=== PATIENT | female | born 1950 | race Two or more races ===

== ENCOUNTER 2022-02-08 12:58 | Emergency (ER) | payer SELFPAY ==
[~2022-02-08] VITALS: Ht 147.3 cm; Wt 50.9 kg
[~2022-02-08 12:58] MED LIST: ALEN5TAB PO; ASPI-611 PF; ATOR20TA PO; CLOP75TA34 PO; DEXT15DR7 OP; DIAZ5TAB4 PO; NORCO10T PO; OMEG1CAP54 PO
[2022-02-08 13:33] LABS: BASOPHILS # (AUTO) 0.1 X10'3 (0-0.2); BASOPHILS % (AUTO) 1.1 % (0-1); EOSINOPHILS % (AUTO) 0.2 % (0-6); HEMATOCRIT 26.1 % (35.0-45.0); LYMPHOCYTES # (AUTO) 1.4 X10'3 (1.1-4.8); MEAN CORPUSCULAR HEMOGLOBIN 19.4 PG (27.0-31.0); MEAN CORPUSCULAR HGB CONC 30.5 g/dL (33.0-36.5); MEAN CORPUSCULAR VOLUME 63.5 FL (78-98); MEAN PLATELET VOLUME 7.8 FL (7.4-10.4); MONOCYTES # (AUTO) 0.6 X10'3 (0-0.9); MONOCYTES % (AUTO) 7.4 % (2-12); NEUTROPHILS # (AUTO) 6.4 X10'3 (1.8-7.7); NEUTROPHILS % (AUTO) 75.3 % (42-75); PLATELET COUNT 485 X10'3 (140-440); RED BLOOD COUNT 4.11 X10'6 (4.20-5.60); RED CELL DISTRIBUTION WIDTH 19.8 % (11.5-14.5); WHITE BLOOD COUNT 8.5 X10'3 (4.5-11.0)
[2022-02-08 13:46] LABS: ALANINE AMINOTRANSFERASE 25 U/L (12-78); ALBUMIN 3.5 G/DL (3.4-5.0); ALBUMIN/GLOBULIN RATIO 0.5 (1.1-1.5); ALKALINE PHOSPHATASE 82 IU/L (46-116); ANION GAP 16 (8-16); ASPARTATE AMINO TRANSFERASE 16 U/L (10-37); BILIRUBIN,TOTAL 0.4 MG/DL (0.1-1.0); BLOOD UREA NITROGEN 26 MG/DL (7-18); BUN/CREATININE RATIO 22.6 (6.6-38.0); CALCIUM 9.1 MG/DL (8.5-10.1); CHLORIDE 100 MMOL/L (99-107); CREATININE 1.15 MG/DL (0.40-0.90); GLUCOSE 110 MG/DL (70-104); POTASSIUM 3.9 MMOL/L (3.5-5.1); SODIUM 134 MMOL/L (135-145); TOTAL CARBON DIOXIDE 17.9 MMOL/L (24-32); eGFR 46 ML/MIN
[2022-02-08 13:52] LABS: PLATELET ESTIMATE INCREASED
[2022-02-08 13:53] LABS: ELLIPTOCYTES 1+; HYPOCHROMASIA 1+
[2022-02-08 13:54] LABS: POLYCHROMASIA 1+; SCHISTOCYTES FEW
[2022-02-08 13:55] LABS: TEAR DROP CELLS FEW
[2022-02-08 17:58] LABS: HEMATOCRIT 24.1 % (35.0-45.0); HEMOGLOBIN 7.6 g/dl (12.0-16.0); MEAN CORPUSCULAR HEMOGLOBIN 20.2 PG (27.0-31.0); MEAN CORPUSCULAR HGB CONC 31.4 g/dL (33.0-36.5); MEAN CORPUSCULAR VOLUME 64.4 FL (78-98); MEAN PLATELET VOLUME 7.7 FL (7.4-10.4); PLATELET COUNT 430 X10'3 (140-440); RED BLOOD COUNT 3.74 X10'6 (4.20-5.60); RED CELL DISTRIBUTION WIDTH 19.5 % (11.5-14.5); WHITE BLOOD COUNT 7.5 X10'3 (4.5-11.0)
[2022-02-08 19:03] VITALS: BP 166/89
== END 2022-02-08 19:09 | disposition home or self-care (01) ==
LOC: ER 12:59
DX: D50.0 Iron deficiency anemia secondary to blood loss (chronic) (principal); D68.59 Other primary thrombophilia; R42 Dizziness and giddiness; I25.10 Atherosclerotic heart disease of native coronary artery without angina pectoris; I10 Essential (primary) hypertension; Z98.890 Other specified postprocedural states; Z60.2 Problems related to living alone; Z88.6 Allergy status to analgesic agent; Z88.8 Allergy status to other drugs, medicaments and biological substances; Z88.2 Allergy status to sulfonamides; Z79.82 Long term (current) use of aspirin; Z79.899 Other long term (current) drug therapy
CPT/HCPCS: 36415; 80053; 83880; 85008; 85025; 85027; 99283

== ENCOUNTER 2022-08-15 14:09 | Inpatient (IN) | payer OTHER ==
[2022-08-15] VITALS (27 sets, daily range): BP systolic 70–190; BP diastolic 24–99
[~2022-08-15] VITALS: Ht 147.3 cm; Wt 49.8 kg
[2022-08-15] MEDS ORDERED: LORazepam 0.5 MG tablet PO PRN (15:10)
[2022-08-15] MEDS ORDERED: diphenhydrAMINE 25mg capsule PO PRN (15:10)
[2022-08-15] MEDS: normal saline 1,000 ML IV SCH ×2 (15:48→20:15)
[2022-08-15] MEDS ORDERED: phenylephrine 10mg/ml inj. ONE (16:09)
[2022-08-15] MEDS ORDERED: DOPamine 400mg/D5W 250ml 0 ML IV ONE (16:09)
[2022-08-15] MEDS ORDERED: LIDOcaine 1% 30ml preserv. free vial ONE (16:09)
[2022-08-15] MEDS ORDERED: atropine 0.1mg/ml 10ml syringe ONE (16:09)
[2022-08-15] MEDS ORDERED: heparin 1,000unit/ml 10ml vial 10 ML ONE (16:09)
[2022-08-15] MEDS ORDERED: iohexol 350MG/ML 100ml bottle IV ONE (16:09)
[2022-08-15] MEDS ORDERED: CALC200T42 PO (16:10)
[2022-08-15] MEDS ORDERED: ATOR-2 PO (16:10)
[2022-08-15] MEDS ORDERED: BISO10TA16 PO (16:10)
[2022-08-15] MEDS ORDERED: SACU1TAB7 PO (16:10)
[2022-08-15] MEDS ORDERED: CHOL20002 PO (16:10)
[2022-08-15] MEDS ORDERED: clopidogrel 300mg tablet ONE (17:49)
[2022-08-15] MEDS ORDERED: DOBUTamine-DoBUTrex 500mg/D5W 250 ML IV SCH (19:05)
[2022-08-15] MEDS ORDERED: pseudoephedrine 30mg tablet PO PRN ×2 (19:15→21:55)
[2022-08-15] MEDS ORDERED: DOPamine 400mg/D5W 250ml 250 ML IV SCH ×3 (19:15→21:05)
[2022-08-15] MEDS ORDERED: ondansetron/PF 4mg/2ml inj ONE (20:17)
--- NOTE | 2022-08-15 21:49 | NUR ---
Patient in at 2125. Placed on tele monitor. resting comfortably. Vitals stable.Femo stop in place at Left groin 41/mm/Hg
[2022-08-15] MEDS ORDERED: HYDROcodone/acetaminophen 10/325mg tab PO PRN (21:55)
[2022-08-15] MEDS ORDERED: hydrALAZINE 20mg/ml inj. IV PRN (21:55)
[2022-08-15] MEDS ORDERED: HYDROcodone/acetaminophen 5mg/325mg tablet PO PRN (21:55)
[2022-08-16] VITALS (7 sets, daily range): BP systolic 110–151; BP diastolic 47–99
[2022-08-16] MEDS: normal saline 1,000 ML IV SCH (00:42)
[2022-08-16] MEDS ORDERED: atenolol 50mg tablet PO SCH (08:00)
[2022-08-16] MEDS ORDERED: ALENDRONATE SODIUM 5 MG PO SCH (08:00)
[2022-08-16] MEDS ORDERED: calcium carbonate 500mg tablet PO SCH (08:00)
[2022-08-16] MEDS ORDERED: DEXTRAN OP SCH (08:00)
[2022-08-16] MEDS ORDERED: OMEGA-3/DHA/EPA/FISH OIL 1 EACH CAPSULE.DR PO SCH ×2 (08:00→09:30)
[2022-08-16] MEDS ORDERED: cholecalciferol (vitamin D3) 1,000 unit (25mcg) tablet PO SCH (08:00)
[2022-08-16] MEDS ORDERED: sacubitril/valsartan 49mg-51mg tablet PO SCH (08:00)
[2022-08-16] MEDS ORDERED: aspirin 81mg, enteric-coated 1 TAB TABLET.DR PO SCH (08:00)
[2022-08-16] MEDS ORDERED: atorvastatin 20mg tablet PO SCH (08:00)
[2022-08-16] MEDS ORDERED: clopidogrel 75mg tablet PO SCH (08:00)
[2022-08-16] MEDS ORDERED: HYPROMELLOSE OP SCH (08:00)
[2022-08-16] MEDS ORDERED: ondansetron/PF 4mg/2ml inj IV PRN (12:00)
--- NOTE | 2022-08-16 15:37 | NUR ---
Patient stable for discharge per Dr. Hyatt. All discharge instructions reviewed with patient and all questions answered. Patient verbalized understanding. No new medications ordered. PIV discontinued, cannula intact. All belongings collected and sent with patient. Picked up by transportations service.
== END 2022-08-16 14:15 | disposition home or self-care (01) | DRG 36 ==
LOC: SSTAY O 14:09 → PCU 3S 18:00
PROVIDERS: ADMIT Student in an Organized Health Care Education/Training Program; ATTEND Student in an Organized Health Care Education/Training Program
PROC: B3141ZZ Fluoroscopy of Left Common Carotid Artery using Low Osmolar Contrast (ICD-10-PCS; principal; 2022-08-15)
PROC: 037K34Z Dilation of Right Internal Carotid Artery with Drug-eluting Intraluminal Device, Percutaneous Approach (ICD-10-PCS; 2022-08-15)
PROC: B3161ZZ Fluoroscopy of Right Internal Carotid Artery using Low Osmolar Contrast (ICD-10-PCS; 2022-08-15)
PROC: B3191ZZ Fluoroscopy of Right External Carotid Artery using Low Osmolar Contrast (ICD-10-PCS; 2022-08-15)
PROC: B41G1ZZ Fluoroscopy of Left Lower Extremity Arteries using Low Osmolar Contrast (ICD-10-PCS; 2022-08-15)
PROC: B3101ZZ Fluoroscopy of Thoracic Aorta using Low Osmolar Contrast (ICD-10-PCS; 2022-08-15)
DX: I65.21 Occlusion and stenosis of right carotid artery (principal); E78.5 Hyperlipidemia, unspecified; I12.9 Hypertensive chronic kidney disease with stage 1 through stage 4 chronic kidney disease, or unspecified chronic kidney disease; I25.10 Atherosclerotic heart disease of native coronary artery without angina pectoris; I95.9 Hypotension, unspecified; I73.9 Peripheral vascular disease, unspecified; N18.9 Chronic kidney disease, unspecified; Z79.899 Other long term (current) drug therapy; Z79.82 Long term (current) use of aspirin; Z68.22 Body mass index [BMI] 22.0-22.9, adult
CPT/HCPCS: 37215; 93005; A4620; A6258; C1725; C1769; C1876; C1884; C1887; C1894; G0378; J0461; J1265; J1644; J2370; J2405; J3490; J7030; J7040; Q0163; Q9967

== ENCOUNTER 2023-10-23 14:52 | Day surgery (SDC) | payer MEDICARE, MEDICAID ==
[~2023-10-23] VITALS: Ht 149.9 cm; Wt 54.5 kg
[2023-10-23] VITALS (12 sets, daily range): BP systolic 128–170; BP diastolic 34–58; PULSE 58–73; RESP 9–16; TEMP 98.3–99.1; O2SAT 95–100
[~2023-10-23 14:52] MED LIST changes: +ATOR-2 PO; -ATOR20TA PO; +BISO10TA16 PO; +CALC200T16 PO; +CHOL20002 PO; -DIAZ5TAB4 PO; -NORCO10T PO; +SACU1TAB7 PO
[2023-10-23] MEDS: normal saline 1,000 ML IV SCH (15:10)
[2023-10-23] MEDS ORDERED: LORazepam 0.5 MG tablet PO PRN (15:10)
[2023-10-23] MEDS ORDERED: diphenhydrAMINE 25mg capsule PO PRN (15:10)
[2023-10-23] MEDS ORDERED: FURO20TA4 PO (15:45)
[2023-10-23] MEDS ORDERED: APIX5TAB3 PO (15:45)
[2023-10-23] MEDS ORDERED: DOPamine 400mg/D5W 250ml 0 ML IV ONE (16:08)
[2023-10-23] MEDS ORDERED: iohexol 350MG/ML 100ml bottle IV ONE (16:09)
[2023-10-23] MEDS ORDERED: heparin 1,000unit/ml 10ml vial 10 ML ONE (16:09)
[2023-10-23] MEDS ORDERED: atropine 0.1mg/ml 10ml syringe ONE (16:09)
[2023-10-23] MEDS ORDERED: phenylephrine 10mg/ml inj. -priapism dosing ONE (16:09)
[2023-10-23] MEDS ORDERED: LIDOcaine 1% (10mg/ml)w/preservative inj. 20ml MDV ONE (16:09)
[2023-10-23] MEDS ORDERED: clopidogrel 300mg tablet ONE (18:35)
[2023-10-23] MEDS ORDERED: hydrALAZINE 20mg/ml inj. IV PRN (20:30)
[2023-10-23] MEDS ORDERED: pseudoephedrine 30mg tablet PO PRN (20:30)
[2023-10-23] MEDS ORDERED: HYDROcodone/acetaminophen 10/325mg tab PO PRN (20:30)
[2023-10-23] MEDS ORDERED: HYDROcodone/acetaminophen 5mg/325mg tablet PO PRN (20:30)
[2023-10-23] MEDS ORDERED: DOPamine 400mg/D5W 250ml 250 ML IV SCH (20:30)
[2023-10-23] MEDS ORDERED: atorvastatin 20mg tablet PO SCH (21:00)
[2023-10-24] MEDS: normal saline 1,000 ML IV SCH ×2 (01:29→11:10)
[2023-10-24 02:00] VITALS: BP 130/36; PULSE 83; RESP 15; TEMP 98; O2SAT 100
[2023-10-24 06:00] VITALS: BP 114/73; PULSE 69; RESP 24; TEMP 97.1; O2SAT 100
[2023-10-24 06:42] LABS: CHOL/HDL RATIO 2.4 (0.00-4.99); CHOLESTEROL 73 MG/DL (0-200); HDL CHOLESTEROL 30 MG/DL (35-60); LDL CHOLESTEROL 30 MG/DL (50-100); TRIGLYCERIDES 93 MG/DL (20-135)
[2023-10-24] MEDS ORDERED: calcium carbonate 500mg tablet PO SCH (07:30)
[2023-10-24] MEDS ORDERED: furosemide 20MG tablet PO SCH (08:00)
[2023-10-24] MEDS ORDERED: cholecalciferol (vitamin D3) 1,000 unit (25mcg) tablet PO SCH (08:00)
[2023-10-24] MEDS ORDERED: atenolol 50mg tablet PO SCH (08:00)
[2023-10-24] MEDS ORDERED: apixaban 5mg tablet PO SCH (08:00)
[2023-10-24] MEDS ORDERED: clopidogrel 75mg tablet PO SCH (08:00)
[2023-10-24 08:21] VITALS: BP_SYST 114
[2023-10-24] MEDS ORDERED: ASPI-1265 PO (09:37)
[2023-11-27] MEDS ORDERED: SACU1TAB7 PO (15:17)
== END 2023-10-24 11:55 | disposition home or self-care (01) ==
LOC: SSTAY O 14:52 → UNDOADMIN 18:45 → PCU 3S 18:45 → SSTAY O 10-24 11:55 → UNDODISIN 10-24 11:55
PROVIDERS: ATTEND Student in an Organized Health Care Education/Training Program
DX: T82.856A Stenosis of peripheral vascular stent, initial encounter (principal); I65.21 Occlusion and stenosis of right carotid artery; I11.0 Hypertensive heart disease with heart failure; I50.9 Heart failure, unspecified; E78.5 Hyperlipidemia, unspecified; I25.10 Atherosclerotic heart disease of native coronary artery without angina pectoris; D64.9 Anemia, unspecified; Z79.899 Other long term (current) drug therapy; Z79.01 Long term (current) use of anticoagulants; Z86.711 Personal history of pulmonary embolism; Z88.8 Allergy status to other drugs, medicaments and biological substances; Z88.2 Allergy status to sulfonamides; Y83.8 Other surgical procedures as the cause of abnormal reaction of the patient, or of later complication, without mention of misadventure at the time of the procedure; Y92.89 Other specified places as the place of occurrence of the external cause
CPT/HCPCS: 36223; 36415; 37246; 80061; 93005; J0360; J0461; J1644; J2370; J3490; J7030; Q9967; 37247; 99152; 99153; A6258; C1725; C1769; C1884; C1887; C1894; G0378; J1265